=== PATIENT | male | born 1960 | race Caucasian/White ===

== ENCOUNTER → 2017-09-08 | Outpatient (CLI) | payer OTHER, MEDICARE ==
[~2017-09-08] VITALS: Ht 167.6 cm; Wt 132.2 kg
[~2017-09-08] MED LIST: AMLO5TAB2 PO; ASPI81TA28 PO; ATV1 PO; CARV25TA PO; FLX10 PO; GLIM4TAB2 PO; LIDO5DIS10 TD; LISI40TA PO; METF1TAB53 PO; METH-589 PO; MULT-884 PO; OXYC7.5T65 PO; PRLSR20 PO; RXC5 PO; SIMV40TA2 PO; TRAZ100T29 PO
[2017-09-08 15:02] VITALS: BP 137/84; PULSE 84; Ht 167.6 cm; Wt 132.2 kg
== END | disposition home or self-care (01) ==
LOC: C.NEUR 12:30
PROVIDERS: ATTEND Physician Assistant
DX: G47.30 Sleep apnea, unspecified (principal); R05 Cough